=== PATIENT | male | born 1955 | race Caucasian/White ===

== ENCOUNTER 2024-11-16 14:11 | Emergency (ER) | payer MEDICAID, MEDICARE ==
[2024-11-16 14:32] VITALS: BP 188/110; PULSE 77
[2024-11-16 14:46] LABS: APPEARANCE,URINE CLEAR (CLEAR); GLUCOSE,URINE NEGATIVE (NEGATIVE); OCCULT BLOOD,URINE SMALL (NEGATIVE)
[2024-11-16] MEDS: Ketorolac 30 MG/ML SDV IM ONE (14:50)
[2024-11-16] MEDS: Ondansetron 4 MG Tab.DIS PO ONE (14:50)
[2024-11-16 15:05] LABS: SQUAMOUS EPITHELIAL CELLS,UR FEW /HPF; UROTHELIAL CELLS,URINE NOT SEEN /HPF
== END 2024-11-16 17:26 | disposition home or self-care (01) ==
LOC: JP.ED 14:11
DX: R10.9 Unspecified abdominal pain (principal); E11.9 Type 2 diabetes mellitus without complications; F17.200 Nicotine dependence, unspecified, uncomplicated; Z79.84 Long term (current) use of oral hypoglycemic drugs; Z79.899 Other long term (current) drug therapy
CPT/HCPCS: 74176; 81001; 96372; 99284; J1885; Q0162